=== PATIENT | male | born 1995 | race Caucasian/White ===

== ENCOUNTER → 2019-01-12 | Outpatient (CLI) | payer OTHER | END | disposition home or self-care (01) | LOC: LABWHC1 13:54 | PROVIDERS: ATTEND Psychiatry & Neurology Psychiatry | DX: Z51.81 Encounter for therapeutic drug level monitoring (principal); Z79.899 Other long term (current) drug therapy | CPT/HCPCS: 36415; 93005 ==

== ENCOUNTER 2019-01-19 21:22 | Emergency (ER) | payer MEDICARE, OTHER ==
[2019-01-19 21:35] VITALS: RESP 18; TEMP 98.1
[2019-01-19] MEDS ORDERED: SODIUM CHLORIDE 0.9% 500 ML 500 ML IV STA (21:38)
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
[2019-01-19 22:41] LABS: Basophils # (A) 0.1 k/uL (0-0.2); Basophils % (A) 1 %; Eosinophils # (A) 0.3 k/uL (0-0.7); Eosinophils % (A) 4 %; HCT 39.3 % (39.0-53.0); HGB 13.4 gm/dL (13.0-17.5); Lymphocytes # (A) 2.8 k/uL (1.0-4.8); Lymphocytes % (A) 40 %; MCH 29.3 pg (25.0-35.0); MCHC 34.1 g/dL (31.0-37.0); MCV 85.9 fL (80.0-100.0); Mean Platelet Volume 6.6; Monocytes # (A) 0.4 k/uL (0-1.0); Monocytes % (A) 6 %; Neutrophils # (A) 3.3 k/uL (1.3-7.7); Neutrophils % (A) 48 %; Platelet Count 274 k/uL (150-450); RBC 4.57 m/uL (4.30-5.90); RDW 12.8 % (11.5-15.5)
[2019-01-19 22:48] LABS: ALT 52 U/L (21-72); AST 39 U/L (17-59); African American GFR (CKD) >90 (>60 ml/min/1.73 sqM); Albumin 4.6 g/dL (3.5-5.0); Alkaline Phosphatase 79 U/L (38-126); Anion Gap 10 mmol/L; Blood Urea Nitrogen 17 mg/dL (9-20); Calcium 9.8 mg/dL (8.4-10.2); Carbon Dioxide 28 mmol/L (22-30); Chloride 103 mmol/L (98-107); Glucose 95 mg/dL (74-99); Potassium 3.9 mmol/L (3.5-5.1); Sodium 141 mmol/L (137-145); Total Bilirubin 0.2 mg/dL (0.2-1.3); Total Protein 7.6 g/dL (6.3-8.2)
[2019-01-19 23:42] VITALS: BP 122/75; PULSE 86
== END 2019-01-19 23:30 | disposition home or self-care (01) ==
LOC: EC 21:22
DX: T50.995A Adverse effect of other drugs, medicaments and biological substances, initial encounter (principal); M62.838 Other muscle spasm; G40.909 Epilepsy, unspecified, not intractable, without status epilepticus; Z79.899 Other long term (current) drug therapy; Z88.8 Allergy status to other drugs, medicaments and biological substances
CPT/HCPCS: 36415; 80053; 85025; 96360; 99284

== ENCOUNTER → 2020-04-18 | Outpatient (CLI) | payer MEDICARE, OTHER ==
--- NOTE | 2020-04-19 07:30 | ECHOF ---
Referral Reason:R06.09 Dyspnea MEASUREMENTS -------- HEIGHT: 170.2 cm WEIGHT: 106.6 kg BP: RVIDd: 2.4 cm (< 3.3) IVSd: 1.1 cm (0.6 - 1.1) LVIDd: 5.0 cm (3.9 - 5.3) LVPWd: 0.9 cm (0.6 - 1.1) IVSs: 1.3 cm LVIDs: 2.7 cm LVPWs: 1.4 cm LA Diam: 3.6 cm (2.7 - 3.8) LAESV Index (A-L): 12.74 ml/m Ao Diam: 3.0 cm (2.0 - 3.7) AV Cusp: 2.1 cm (1.5 - 2.6) LA Diam: 3.9 cm (2.7 - 3.8) MV EXCURSION: 19.848 mm (> 18.000) MV EF SLOPE: 116 mm/s (70 - 150) EPSS: 0.4 cm MV E Luis E: 1.02 m/s MV DecT: 185 ms MV A Luis E: 0.87 m/s MV E/A Ratio: 1.18 RAP: 5.00 mmHg RVSP: 15.84 mmHg FINDINGS -------- Sinus rhythm. This was a technically good study. LV size, wall thickness and systolic function are normal, with an EF greater than 55%. The left kristi tricular size is normal. The right ventricle is normal in size. Normal LA size by volume 22+/-6 ml/m2. The right atrial size is normal. The aortic valve is trileaflet, and appears structurally normal. No aortic stenosis or regurgitation. The mitral valve is normal. Mild mitral regurgitation is present. The tricuspid valve appears structurally normal. Mild tricuspid regurgitation present. Right vent ricular systolic pressure is normal at < 35 mmHg. There is no pulmonic regurgitation present. The aortic root size is normal. There is no pericardial effusion. CONCLUSIONS -------- 1. LV size, wall thickness and systolic function are normal, with an EF greater than 55%. 2. Normal LA size by volume 22+/-6 ml/m2. 3. The aortic valve is trileaflet, and appears structurally normal. No aortic stenosis or regurgitati on. 4. Mild mitral regurgitation is present. 5. Mild tricuspid regurgitation present. 6. There is no pericardial effusion. HIGH LIGHTER: Rachell Simmons RDCS
== END | disposition home or self-care (01) ==
LOC: RADECHMAIN 15:06
PROVIDERS: ATTEND Family Medicine
DX: I08.1 Rheumatic disorders of both mitral and tricuspid valves (principal)
CPT/HCPCS: 93306

== ENCOUNTER → 2020-07-17 | Outpatient (CLI) | payer MEDICARE, OTHER ==
[2020-07-17 17:54] LABS: Hemoglobin A1C 5.2 % (4.0-6.0)
[2020-07-17 19:10] LABS: Chol/HDL Ratio 5.21
[2020-07-17 19:18] LABS: Prolactin 17.7 ng/mL (2.1-17.7); T4, Free (Free Thyroxine) 1.2 ng/dL (0.80-1.80)
== END | disposition home or self-care (01) ==
LOC: LABWHC1 09:32
PROVIDERS: ATTEND Psychiatry & Neurology Psychiatry
DX: Z79.899 Other long term (current) drug therapy (principal)
CPT/HCPCS: 36415; 80061; 82947; 83036; 84146; 84439; 84443

== ENCOUNTER 2022-04-30 22:55 | Emergency (ER) | payer MEDICARE, OTHER ==
[2022-04-30 23:14] VITALS: BP 121/72; PULSE 85; RESP 18; TEMP 98.2
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
== END 2022-05-01 00:15 | disposition home or self-care (01) ==
LOC: EC 22:55
DX: R45.6 Violent behavior (principal); Z88.8 Allergy status to other drugs, medicaments and biological substances
CPT/HCPCS: 99282; 99285

== ENCOUNTER 2022-05-10 18:26 | Emergency (ER) | payer MEDICARE, OTHER ==
[2022-05-10 18:40] VITALS: RESP 18
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
--- NOTE | 2022-05-10 19:31 | XR ---
EXAMINATION TYPE: XR chest 2V DATE OF EXAM: 05/10/2022 COMPARISON: 11/26/2015 HISTORY: Sore throat. Short of breath. TECHNIQUE: 2 views FINDINGS: Heart and mediastinum appear normal. There is slight increased pulmonary interstitial michael ngs. No pleural effusion. There are no hilar masses. IMPRESSION: Mild increased pulmonary interstitial density is increased compared to the old exam. This could be acute interstitial pneumonia.
--- NOTE | 2022-05-10 19:33 | XR ---
EXAMINATION TYPE: XR soft tissue neck DATE OF EXAM: 05/10/2022 COMPARISON: NONE HISTORY: Sore throat. TECHNIQUE: 2 view FINDINGS: Epiglottis is normal. Tonsils and adenoids appear normal. Prevertebral soft tissues are int act. Subglottic trachea is intact. IMPRESSION: Negative cervical soft tissue exam.
[2022-05-10 20:04] VITALS: BP 137/87; PULSE 89; TEMP 98.3
== END 2022-05-10 20:04 | disposition home or self-care (01) ==
LOC: EC 18:26
DX: J02.9 Acute pharyngitis, unspecified (principal); Z88.8 Allergy status to other drugs, medicaments and biological substances
CPT/HCPCS: 70360; 71046; 87651; 99284